=== PATIENT | female | born 1960 | race Caucasian/White ===

== ENCOUNTER → 2020-09-01 | Outpatient (CLI) | payer OTHER ==
[~2020-09-01] MED LIST: COVID-19 VACC, MRNA(MODERNA)/PF 100 MCG/0.5 ML VIAL IM ONE
== END ==
LOC: VACCPMC 07:00
DX: Z23 Encounter for immunization (principal); Z20.822 Contact with and (suspected) exposure to COVID-19

== ENCOUNTER → 2020-09-29 | Outpatient (CLI) | payer OTHER | END | DRG 951 | LOC: VACCPMC 07:30 | DX: Z23 Encounter for immunization (principal); Z20.822 Contact with and (suspected) exposure to COVID-19 | CPT/HCPCS: 0012A; 91301 ==

== ENCOUNTER → 2021-06-27 | Outpatient (CLI) | payer OTHER | LOC: VACCPMC 09:00 | DX: Z23 Encounter for immunization (principal); Z20.822 Contact with and (suspected) exposure to COVID-19 ==

== ENCOUNTER 2024-05-26 05:38 | Emergency (ER) | payer BC ==
[~2024-05-26] VITALS: Ht 162.6 cm; Wt 97.5 kg
[2024-05-26] MEDS ORDERED: DEXAMETHASONE SOD PHOS 10 MG/1 ML VIAL IM STA (05:40)
[2024-05-26] MEDS ORDERED: AZITHROMYCIN250 MG PO (05:54)
[2024-05-26] MEDS ORDERED: PREDNISONE20 MG PO (05:54)
[2024-05-26] MEDS ORDERED: VENTOLIN HFA18 GM INH (05:54)
[2024-05-26 06:00] VITALS: PULSE 87; RESP 19; TEMP 98; O2SAT 98
[2024-05-26 06:29] LABS: INFLUENZAE A&B ANTIGEN (RAPID) NEGATIVE (NEGATIVE)
[2024-05-26 06:30] LABS: RESPIRATORY SYNC. VIRUS NEGATIVE (NEGATIVE)
== END 2024-05-26 06:50 | disposition home or self-care (01) ==
LOC: ER 05:42
DX: R05.9 Cough, unspecified (principal); B34.9 Viral infection, unspecified; I10 Essential (primary) hypertension; Z11.52 Encounter for screening for COVID-19
CPT/HCPCS: 71046; 87400; 87420; 99283; U0002